=== PATIENT | male | born 1995 | race Caucasian/White ===

== ENCOUNTER 2019-02-21 00:20 | Emergency (ER) | payer MEDICAID ==
[~2019-02-21] VITALS: Ht 165.1 cm; Wt 112.5 kg
[2019-02-21 00:24] VITALS: BP 128/79
[2019-02-21 01:02] LABS: BASOPHILS % (AUTO) 0.2 % (0.0-2.0); EOSINOPHILS # (AUTO) 0.1 K/uL (0-0.4); EOSINOPHILS % (AUTO) 0.7 % (0.0-4.0); HEMATOCRIT 45.4 % (36-52); HEMOGLOBIN 15.4 g/dL (12.0-18.0); LYMPHOCYTES # (AUTO) 1.7 K/uL (2.0-11.5); LYMPHOCYTES % (AUTO) 14.3 % (20.5-51.1); MEAN CORPUSCULAR HEMOGLOBIN 27 pg (27-31); MEAN CORPUSCULAR HGB CONC 34 g/dL (33-37); MEAN CORPUSCULAR VOLUME 80.2 fL (80-94); MONOCYTES # (AUTO) 0.9 K/uL (0.8-1.0); MONOCYTES % (AUTO) 7.8 % (1.7-9.3); NEUTROPHILS # (AUTO) 9.1 K/uL (1.8-7.7); PLATELET COUNT (AUTO) 171 K/uL (140-450); RED BLOOD CELL COUNT(AUTO) 5.67 MIL/uL (4.20-6.10); RED CELL DISTRIBUTION WIDTH 13.4 % (11.6-13.7); WHITE BLOOD COUNT (AUTO) 11.8 K/uL (4.8-10.8)
[2019-02-21 01:35] LABS: ALBUMIN 3.9 g/dL (3.4-5.0); TOTAL BILIRUBIN 0.6 mg/dL (0.0-1.0)
--- NOTE | 2019-02-21 01:40 | NUR ---
PT AMBULATED TO BED 07
--- NOTE | 2019-02-21 02:08 | NUR ---
23 YO M BIB SELF C/O 8/10 CRAMPING LLQ PAIN THAT COMES AND GOES SINCE YESTERDAY. PT STATES HE HAS EXPERIENCED SIMILAR PAIN IN SAME AREA 5 MONTHS AGO WHEN HE WAS ADMITTED TO [facility] FOR A COLON INFECTION. PT DENIES NVD. LAST BM YESTERDAY; STATES NORMAL, NO BLEEDING. DENIES URINARY BURNING/PAIN. -- PT AWAKE, ALERT, CALM, COOPERATIVE. ANSWERS QUESTIONS APPROPRIATELY. BEHAVIOR AGE APPROPRIATE. -- SKIN PINK, WARM, DRY. BREATHING EVEN, UNLABORED. -- ABD SOFT, NON-TENDER, ROUND. PMH-- DENIES RX-- MOTRIN YESTERDAY; SEMI-EFFECTIVE
[2019-02-21] MEDS ORDERED: KETOROLAC 60 MG/2 ML VIAL IM ONE (02:25)
--- NOTE | 2019-02-21 02:38 | NUR ---
MEDICATION ADMINISTERED ORDERED. RISKS/BENEFITS REVIEWED WITH PT. WILL CONTINUE TO MONITOR.
--- NOTE | 2019-02-21 03:10 | NUR ---
PT STATES PAIN DECREASED TO 6/10 BUT REPORTS PAIN STILL COMES AND GOES. PT RECEIEVING RX FOR NORCO AND MOTRIN.
[2019-02-21 03:12] VITALS: BP 111/88
--- NOTE | 2019-02-21 03:12 | NUR ---
Patient discharged with v/s stable. Written and verbal after care instructions given and explained. Patient alert, oriented and verbalized understanding of instructions. Ambulatory with steady gait. All questions addressed prior to discharge. ID band removed. Patient advised to follow up with PMD. Rx of Motrin, [place], Cipro, Flagyl given. Patient educated on indication of medication including possible reaction and side effects. Opportunity to ask questions provided and answered.
== END 2019-02-21 03:12 | disposition home or self-care (01) ==
LOC: MED 00:20
DX: K57.92 Diverticulitis of intestine, part unspecified, without perforation or abscess without bleeding (principal)
CPT/HCPCS: 36415; 80053; 81002; 83690; 85025; 96372; 99283; J1885

== ENCOUNTER 2021-05-11 15:49 | Emergency (ER) | payer MEDICAID ==
[~2021-05-11] VITALS: Ht 167.6 cm; Wt 104.8 kg
[2021-05-11 16:01] VITALS: BP 145/77
--- NOTE | 2021-05-11 16:27 | NUR ---
PT WALKED TO ROOM 3
--- NOTE | 2021-05-11 16:28 | NUR ---
25 Y/O MALE BIB SELF FOR SHARP NON-RADIATING 3/10 RECTAL PAIN FOR 2-3 WEEKS. STATES INTERMITTENT EPISODES OF ABDOMINAL PAIN, DENIES N/V/D, CP, SOB, FEVER OR CHILLS. PER PT, HE WAS PREVIOUSLY HOSPITALIZED FROM HIS LAST EPISODE OF RECTAL PAIN. ABD IS SOFT AND NON-TENDER TO TOUCH. + BS NOTED X4. LAST BM 05/11/21. PASSING FLATUS. PMHX: DIVERTICULOSIS ALLERGIES: DENIES HOME MEDS: DENIES
[2021-05-11] MEDS ORDERED: NACL 0.9% 1,000 ML IV ONE (17:00)
[2021-05-11 17:21] LABS: BASOPHILS # (AUTO) 0.1 K/uL (0.00-0.22); BASOPHILS % (AUTO) 0.5 % (0.0-2.0); EOSINOPHILS # (AUTO) 0.1 K/uL (0-0.4); EOSINOPHILS % (AUTO) 1.1 % (0.0-4.0); HEMATOCRIT 48.8 % (36-52); HEMOGLOBIN 16.6 g/dL (12.0-18.0); LYMPHOCYTES # (AUTO) 2.2 K/uL (2.0-11.5); LYMPHOCYTES % (AUTO) 22.7 % (20.5-51.1); MEAN CORPUSCULAR HEMOGLOBIN 28 pg (27-31); MEAN CORPUSCULAR HGB CONC 34 g/dL (33-37); MEAN CORPUSCULAR VOLUME 83.1 fL (80-94); MONOCYTES # (AUTO) 0.6 K/uL (0.8-1.0); MONOCYTES % (AUTO) 6.5 % (1.7-9.3); NEUTROPHILS # (AUTO) 6.8 K/uL (1.8-7.7); NEUTROPHILS % (AUTO) 69.2 % (42.2-75.2); PLATELET COUNT (AUTO) 209 K/uL (140-450); RED BLOOD CELL COUNT(AUTO) 5.87 MIL/uL (4.20-6.10); RED CELL DISTRIBUTION WIDTH 13.4 % (11.6-13.7); WHITE BLOOD COUNT (AUTO) 9.8 K/uL (4.8-10.8)
[2021-05-11 17:39] LABS: ALBUMIN 4.3 g/dL (3.4-5.0); ANION GAP 13.3 (8-16); CARBON DIOXIDE 28.4 mmol/L (21-32); CREATININE 0.9 mg/dL (0.6-1.3); POTASSIUM 3.7 mmol/L (3.5-5.1); TOTAL BILIRUBIN 0.6 mg/dL (0.0-1.0)
--- NOTE | 2021-05-11 18:15 | NUR ---
Pt taken to radiology for CT scan, consent is signed and in chart
--- NOTE | 2021-05-11 18:27 | NUR ---
Pt returned from CT scan in wheelchair
--- NOTE | 2021-05-11 18:32 | NUR ---
Urine dipped and results shown to ERMD
[2021-05-11] MEDS ORDERED: metroNIDAZOLE 500 MG TAB PO ONE (18:50)
--- NOTE | 2021-05-11 19:15 | NUR ---
Pt report given to CORNELIUS Lerma. Transfer of care at this time.
--- NOTE | 2021-05-11 19:15 | NUR ---
Received report from Sahra SHIELDS for continuity of care
[2021-05-11 19:19] LABS: APPEARANCE,URINE CLEAR (CLEAR); BILIRUBIN,URINE NEGATIVE (NEGATIVE); BLOOD, URINE TRACE-I (NEGATIVE); COLOR,URINE YELLOW (YELLOW); LEUKOCYTE ESTERASE ,URINE NEGATIVE (NEGATIVE); NITRITE, URINE NEGATIVE (NEGATIVE); UGLUCOSE NEGATIVE (NEGATIVE)
[2021-05-11] MEDS ORDERED: cefTRIAXone 1,000 MG VIAL ONE (19:19)
[2021-05-11] MEDS ORDERED: AMOX-1000 PO (19:23)
[2021-05-11] MEDS ORDERED: ACET-2619 PO (19:23)
[2021-05-11] MEDS ORDERED: IBUP-2213 PO (19:23)
--- NOTE | 2021-05-11 19:48 | NUR ---
PATIENT DISCONNECTED FROM IV AND ASKED PATIENT TO CHANGE INTO CLOTHES
--- NOTE | 2021-05-11 20:10 | NUR ---
IV removed, catheter intact and site benign. Applied folded 4x4 gauze and tape to stop bleeding.
--- NOTE | 2021-05-11 20:13 | NUR ---
Patient discharged with v/s stable. Written and verbal after care instructions given and explained. Patient alert, oriented and verbalized understanding of instructions. Ambulatory with steady gait. All questions addressed prior to discharge. ID band removed. Patient advised to follow up with PMD. Rx of tylenol, ibuprofen, & Augmentin 875-125 given. Patient educated on indication of medication including possible reaction and side effects. Opportunity to ask questions provided and answered.
[2021-05-11 20:15] VITALS: BP 120/60
== END 2021-05-11 20:13 | disposition home or self-care (01) ==
LOC: MED 15:49
DX: K57.92 Diverticulitis of intestine, part unspecified, without perforation or abscess without bleeding (principal)
CPT/HCPCS: 36415; 74177; 80053; 81003; 83690; 85025; 87086; 96361; 96374; 99285; J0696; J7030; Q9967

== ENCOUNTER 2022-12-13 12:02 | Emergency (ER) | payer MEDICAID ==
[~2022-12-13] VITALS: Ht 167.6 cm; Wt 114.3 kg
[~2022-12-13 12:02] MED LIST: ACET-2619 PO; AMOX-1000 PO; IBUP-2213 PO
[2022-12-13 12:12] VITALS: BP 141/98
[2022-12-13] MEDS ORDERED: ATA25 PO (14:00)
--- NOTE | 2022-12-13 15:02 | NUR ---
Patient discharged with v/s stable. Written and verbal after care instructions given and explained. Patient verbalized understanding. Ambulatory with to home. All questions addressed prior to discharge. Advised to follow up with PMD.
== END 2022-12-13 14:20 | disposition home or self-care (01) ==
LOC: MED 12:02
DX: F41.9 Anxiety disorder, unspecified (principal); F12.23 Cannabis dependence with withdrawal; Z79.899 Other long term (current) drug therapy
CPT/HCPCS: 93005; 99283

== ENCOUNTER 2023-08-30 19:42 | Emergency (ER) | payer MEDICAID ==
[~2023-08-30] VITALS: Ht 165.1 cm; Wt 97.5 kg
[~2023-08-30 19:42] MED LIST changes: +ATA25 PO
[2023-08-30 19:50] VITALS: BP 122/63; PULSE 82; RESP 17; TEMP 98.3; O2SAT 98
[2023-08-30 22:02] LABS: BILIRUBIN,URINE NEGATIVE (NEGATIVE); BLOOD, URINE TRACE-I (NEGATIVE); COLOR,URINE YELLOW (YELLOW); LEUKOCYTE ESTERASE ,URINE 1+ (NEGATIVE); NITRITE, URINE NEGATIVE (NEGATIVE); PROTEIN,URINE NEGATIVE (NEGATIVE); UGLUCOSE NEGATIVE (NEGATIVE); UROBILINOGEN,URINE 0.2 EU/dL (0.2 - 1)
[2023-08-30 22:04] LABS: APPEARANCE,URINE SLIGHTLY CLOUDY (CLEAR); RBC,URINE 0-5 /HPF (0-5)
[2023-08-30 22:05] LABS: BACTERIA,URINE 2+ /HPF (None Seen); MUCUS,URINE None Seen /LPF (None Seen); SQUAMOUS EPITHELIAL CELL,UR 0-3 (FEW) /LPF (0-3 (FEW))
[2023-08-30 22:17] LABS: BASOPHILS # (AUTO) 0.1 K/uL (0.00-0.22); BASOPHILS % (AUTO) 0.6 % (0.0-2.0); EOSINOPHILS # (AUTO) 0.1 K/uL (0-0.4); EOSINOPHILS % (AUTO) 1.4 % (0.0-4.0); HEMATOCRIT 47.2 % (36-52); HEMOGLOBIN 16.3 g/dL (12.0-18.0); LYMPHOCYTES % (AUTO) 28.2 % (20.5-51.1); MEAN CORPUSCULAR HEMOGLOBIN 28 pg (27-31); MEAN CORPUSCULAR HGB CONC 35 g/dL (33-37); MEAN CORPUSCULAR VOLUME 81.5 fL (80-94); MONOCYTES # (AUTO) 0.6 K/uL (0.8-1.0); MONOCYTES % (AUTO) 5.6 % (1.7-9.3); NEUTROPHILS # (AUTO) 6.9 K/uL (1.8-7.7); NEUTROPHILS % (AUTO) 64.2 % (42.2-75.2); PLATELET COUNT (AUTO) 208 K/uL (140-450); RED BLOOD CELL COUNT(AUTO) 5.79 MIL/uL (4.20-6.10); WHITE BLOOD COUNT (AUTO) 10.7 K/uL (4.8-10.8)
[2023-08-30] MEDS ORDERED: CEPH-588 PO (22:18)
[2023-08-30 22:36] LABS: CALCIUM 9.5 mg/dL (8.5-10.1); CARBON DIOXIDE 26.7 mmol/L (21-32); POTASSIUM 3.7 mmol/L (3.5-5.1)
[2023-08-30 22:40] LABS: ALBUMIN 4.1 g/dL (3.4-5.0); BILIRUBIN,DIRECT 0.1 mg/dL (0.0-0.3); TOTAL BILIRUBIN 0.4 mg/dL (0.0-1.0); TOTAL PROTEIN, SERUM 9.5 g/dL (6.4-8.2)
[2023-08-30 22:51] VITALS: BP 118/70; PULSE 82; RESP 17; TEMP 98.3; O2SAT 98
== END 2023-08-30 22:51 | disposition home or self-care (01) ==
LOC: MED 19:42
DX: N39.0 Urinary tract infection, site not specified (principal); Z79.899 Other long term (current) drug therapy
CPT/HCPCS: 36415; 80048; 80076; 81001; 83690; 85025; 87086; 99284